=== PATIENT | male | born 1975 | race Two or more races ===

== ENCOUNTER 2021-10-15 09:18 | Emergency (ER) | payer BC ==
[~2021-10-15] VITALS: Ht 165.1 cm; Wt 80.3 kg
--- NOTE | 2021-10-15 09:27 | PHYS DOC ---
Adult General HPI HPI Patient is a 46 year old male who presents with abdominal pain. Patient first started having pain in the right flank area about 48 hours earlier. Over the last 2 days, he has developed diffuse abdominal pain. He has some nausea no vomiting. No fever. No history of similar symptoms in the past and no prior abdominal surgeries. He is otherwise healthy. Today, rates pain to be diffuse and severe. Review of Systems Review of Systems Constitutional: Denies fever or chills Eyes: Denies HENT: Denies nasal congestion or sore throat Respiratory: Denies cough or shortness of breath Cardiovascular: No additional information not addressed in HPI GI: As documented in HPI : Denies dysuria or hematuria Musculoskeletal: Denies back pain or joint pain Integument: Denies rash or skin lesions Neurologic: Denies headache, All other systems were reviewed and found to be within normal limits, except as documented in this note. Current Medications Current Medications Current Medications Medications (Trade) Dose Ordered Sig/Todd Start Time Stop Time Status Last Admin Dose Admin Fentanyl Citrate (Fentanyl 2ml Vial) 75 mcg 1X ONCE 10/15/21 09:45 10/15/21 09:46 DC 10/15/21 09:58 75 MCG Hydromorphone HCl (Dilaudid) 1 mg 1X ONCE 10/15/21 10:45 10/15/21 10:46 DC 10/15/21 10:45 1 MG Info (CONTRAST GIVEN -- Rx MONITORING) 1 each PRN DAILY PRN 10/15/21 10:30 10/17/21 10:29 Iohexol (Omnipaque 300 Mg/ml) 75 ml 1X ONCE 10/15/21 10:30 10/15/21 10:31 DC 10/15/21 10:23 75 ML Ketorolac Tromethamine (Toradol 30mg Vial) 30 mg 1X ONCE 10/15/21 10:45 10/15/21 10:46 DC 10/15/21 10:42 30 MG Ondansetron HCl (Zofran) 4 mg 1X ONCE 10/15/21 09:45 10/15/21 09:46 DC 10/15/21 09:57 4 MG Sodium Chloride 1,000 ml @ 1,000 mls/hr 1X ONCE 10/15/21 10:45 10/15/21 11:44 10/15/21 10:39 1,000 MLS/HR Tamsulosin HCl (Flomax) 0.4 mg 1X ONCE 10/15/21 11:30 10/15/21 11:31 Allergies Allergies Allergies Coded Allergies Type Severity Reaction Last Updated Verified No Known Drug Allergies 10/15/21 No Physical Exam Physical Exam Constitutional: Well developed, well nourished, distress 2/2 abdominal pain HENT: Normocephalic, atraumatic, bilateral external ears normal, oropharynx moist, no oral exudates, nose normal. Eyes: PERRLA, EOMI, conjunctiva normal Neck: Normal range of motion, no tenderness Cardiovascular:Heart rate regular rhythm, no murmur Lungs & Thorax: Bilateral breath sounds clear to auscultation Abdomen: diffusely TTP, guarded Skin: Warm, dry, no erythema, no rash. Back: No tenderness Extremities: Normal pulses Neurologic: Alert and oriented X 3 Psychologic: Affect normal, Current Patient Data Vital Signs Vital Signs Date Time Temp Pulse Resp B/P (MAP) Pulse Ox O2 Delivery O2 Flow Rate FiO2 10/15/21 10:46 80 18 146/95 (112) 97 Room Air 10/15/21 09:35 97.3 97.3 Lab Values Laboratory Tests Test 10/15/21 09:40 10/15/21 09:51 Urine Collection Type Unknown Urine Color [place] Urine Clarity Cloudy Urine pH 6.0 (<5.0-8.0) Urine Specific [place] 1.020 (1.000-1.030) Urine Protein Negative mg/dL (NEG-TRACE) Urine Glucose (UA) Negative mg/dL (NEG) Urine Ketones (Stick) Negative mg/dL (NEG) Urine Blood Trace (NEG) Urine Nitrite (NEG) Urine Bilirubin Negative (NEG) Urine Urobilinogen Dipstick 1.0 mg/dL (0.2 mg/dL) Urine Leukocyte Esterase Negative (NEG) Urine RBC 3-5 /HPF (0-2) Urine WBC 0 /HPF (0-4) Urine Bacteria 0 /HPF (0-FEW) White Blood Count 12.2 x10^3/uL (4.0-11.0) H Red Blood Count 4.79 x10^6/uL (4.30-5.70) Hemoglobin 15.3 g/dL (13.0-17.5) Hematocrit 43.8 % (39.0-53.0) Mean Corpuscular Volume 91 fL (79-100) Mean Corpuscular Hemoglobin 32 pg (25-35) Mean Corpuscular Hemoglobin Concent 35 g/dL (31-37) Red Cell Distribution Width 12.3 % (11.5-14.5) Platelet Count 187 x10^3/uL (140-400) Neutrophils (%) (Auto) 84 % (31-73) H Lymphocytes (%) (Auto) 10 % (24-48) L Monocytes (%) (Auto) 7 % (0-9) Eosinophils (%) (Auto) 0 % (0-3) Basophils (%) (Auto) 0 % (0-3) Neutrophils # (Auto) 10.2 x10^3/uL (1.8-7.7) H Lymphocytes # (Auto) 1.2 x10^3/uL (1.0-4.8) Monocytes # (Auto) 0.8 x10^3/uL (0.0-1.1) Eosinophils # (Auto) 0.0 x10^3/uL (0.0-0.7) Basophils # (Auto) 0.0 x10^3/uL (0.0-0.2) Sodium Level 140 mmol/L (136-145) Potassium Level 3.9 mmol/L (3.5-5.1) Chloride Level 103 mmol/L (98-107) Carbon Dioxide Level 27 mmol/L (21-32) Anion Gap 10 (6-14) Blood Urea Nitrogen 17 mg/dL (8-26) Creatinine 1.1 mg/dL (0.7-1.3) Estimated GFR (Cockcroft-Gault) 71.4 BUN/Creatinine Ratio 15 (6-20) Glucose Level 144 mg/dL (70-99) H Calcium Level 8.3 mg/dL (8.5-10.1) L Total Bilirubin 0.4 mg/dL (0.2-1.0) Aspartate Amino Transferase (AST) 22 U/L (15-37) Alanine Aminotransferase (ALT) 34 U/L (16-63) Alkaline Phosphatase 83 U/L (46-116) Total Protein 7.5 g/dL (6.4-8.2) Albumin 3.8 g/dL (3.4-5.0) Albumin/Globulin Ratio 1.0 (1.0-1.7) Lipase 102 U/L (73-393) Laboratory Tests 10/15/21 09:51 Laboratory Tests 10/15/21 09:51 EKG EKG [] Radiology/Procedures Radiology/Procedures [] Course & Med Decision Making Course & Med Decision Making Pertinent Labs and Imaging studies reviewed. (See chart for details) 09:40: Patient is seen and examined. Orders are placed for CT scan, labs, UA, medications for symptom relief, fentanyl and Zofran 10:35: Patient is reevaluated. He received fentanyl about 15 minutes earlier. Currently with no relief of symptoms. Toradol, Dilaudid are ordered for pain. Work-up is pending still. 11:30: All results are reviewed and discussed with the patient. He is currently pain-free and feeling much improved. No nausea. Work-up today is positive for 3 mm stone noted in the CT report. Diagnosis is explained to him and all of his questions were answered. He is placed on Flomax over the next several days and given some Motrin and [place] for pain symptoms. He will come back to the ER for any poorly controlled symptoms and will follow-up with primary care doctor as needed. Dragon Disclaimer Dragon Disclaimer This electronic medical record was generated, in whole or in part, using a voice recognition dictation system. Departure Departure Impression: Primary Impression: Kidney stone Disposition: HOME / SELF CARE / HOMELESS Condition: GOOD Referrals: SUNNY HERNANDEZ MD Patient Instructions: Kidney Stones BRANDON KAHN DO Oct 15, 2021 09:27
[2021-10-15] MEDS ORDERED: ONDANSETRON PF 4 MG/2 ML VIAL. IVP ONE (09:45)
[2021-10-15] MEDS ORDERED: fentaNYL PF VIAL 100 MCG/2 ML VIAL IVP ONE (09:45)
[2021-10-15 10:09] LABS: CALCIUM 8.3 mg/dL (8.5-10.1); CREATININE 1.1 mg/dL (0.7-1.3); GFR 71.4; POTASSIUM 3.9 mmol/L (3.5-5.1)
[2021-10-15 10:11] LABS: BASO % 0 % (0-3); EOS % 0 % (0-3); HEMATOCRIT 43.8 % (39.0-53.0); HEMOGLOBIN 15.3 g/dL (13.0-17.5); LYMPH # 1.2 x10^3/uL (1.0-4.8); LYMPH % 10 % (24-48); MEAN CORPUSCULAR HEMOGLOBIN 32 pg (25-35); MEAN CORPUSCULAR HGB CONC 35 g/dL (31-37); MEAN CORPUSCULAR VOLUME 91 fL (79-100); MONO # 0.8 x10^3/uL (0.0-1.1); MONO % 7 % (0-9); NEUT # 10.2 x10^3/uL (1.8-7.7); NEUT % 84 % (31-73); PLATELET COUNT 187 x10^3/uL (140-400); RED BLOOD COUNT 4.79 x10^6/uL (4.30-5.70); RED CELL DISTRIBUTION WIDTH 12.3 % (11.5-14.5); WHITE BLOOD COUNT 12.2 x10^3/uL (4.0-11.0)
[2021-10-15 10:11] LABS: BILIRUBIN,URINE NEGATIVE (NEG); CLARITY,URINE CLOUDY; COLOR,URINE ORANGE; PROTEIN,URINE NEGATIVE (NEG-TRACE)
[2021-10-15 10:15] LABS: ALBUMIN 3.8 g/dL (3.4-5.0); TOTAL BILIRUBIN 0.4 mg/dL (0.2-1.0); TOTAL PROTEIN 7.5 g/dL (6.4-8.2)
[2021-10-15] MEDS ORDERED: CONTRAST GIVEN. MC PRN (10:30)
[2021-10-15] MEDS ORDERED: IOHEXOL 300 MG/ML 100ML VIAL. IV ONE (10:30)
[2021-10-15 10:37] LABS: BACTERIA,URINE 0 /HPF (0-FEW); WBC,URINE 0 /HPF (0-4)
[2021-10-15] MEDS ORDERED: KETOROLAC 30 MG/ML VIAL. IVP ONE (10:45)
[2021-10-15] MEDS ORDERED: IV NORMAL SALINE 1000ML BAG 1,000 ML IV ONE (10:45)
[2021-10-15] MEDS ORDERED: HYDROmorphone 2 MG/ML INJ. IVP ONE (10:45)
[2021-10-15 10:46] VITALS: BP 146/95
--- NOTE | 2021-10-15 10:48 | RAD ---
EXAMINATION: CT ABDOMEN+PELVIS W CLINICAL HISTORY: Abdominal pain. TECHNIQUE: CT of the abdomen and pelvis was performed using standard technique, scanning from just ab ove the dome of the diaphragm to the symphysis pubis following administration of intravenous contrast . CT Dose Reduction Employed: One or more of the following individualized dose reduction techniques wer e utilized for this examination: 1. Automated exposure control 2. Adjustment of the mA and/or kV ac cording to patient size 3. Use of iterative reconstruction technique. COMPARISON: None FINDINGS: Minimal dependent bibasilar subsegmental atelectasis. Liver, gallbladder, pancreas, spleen, and adrenal glands unremarkable. 3 mm calculus at the right ureterovesical junction with mild hydroureteronephrosis, renal edema, and perinephric stranding. No additional urinary calculi visualized. Nondistended urinary bladder otherwi se unremarkable. No bowel dilation or definite wall thickening. Appendix within normal limits. No abdominal aortic or iliac artery aneurysm. No evidence of acute osseous abnormality. IMPRESSION: 3 mm calculus at the right ureterovesical junction with mild hydroureteronephrosis and surrounding re active changes. Electronically signed by: Robert Vale DO (10/15/2021 10:45 AM) [id number]
[2021-10-15] MEDS ORDERED: TAMSULOSIN 0.4 MG CAP.ER.24H. PO ONE (11:30)
[2021-10-15] MEDS ORDERED: IBUP800T19 PO (11:35)
[2021-10-15] MEDS ORDERED: TAMS0.4C97 PO (11:35)
[2021-10-15] MEDS ORDERED: HYDR-2759 PO (11:35)
== END 2021-10-15 11:54 | disposition home or self-care (01) ==
LOC: ER 09:18
DX: N20.0 Calculus of kidney (principal)
CPT/HCPCS: 36415; 74177; 80053; 81001; 83690; 85025; 96361; 96374; 96375; 99285; J1170; J1885; J2405; J3010; J7030; Q9967